=== PATIENT | female | born 1940 | race Caucasian/White ===

== ENCOUNTER → 2016-10-05 | Outpatient (CLI) | payer MEDICARE, BC ==
[~2016-10-05] MED LIST: ASPI81 PO; CALA240T PO; FLAG250T OR; GLIM4TAB PO; HYOS0.1251 SL; METF-324 PO; ONDA8; VICTOZA PO
[2016-10-05 14:34] LABS: ALKALINE PHOSPHATASE 102 U/L (45-117); ALT (GPT) 21 U/L (10-53); ANION GAP 8 MEQ/L (5-15); AST (GOT) 15 U/L (15-37); BICARBONATE 28.4 MEQ/L (21.0-32.0); BLOOD UREA NITROGEN 15 MG/DL (7-18); CHLORIDE 105 MEQ/L (98-107); FREE T4 1.26 NG/DL (0.76-1.46); GLOMERULAR FILTRATION RATE 42 ML/MIN (>89); GLUCOSE,FASTING 107 MG/DL (74-99); HDL CHOLESTEROL 42.3 MG/DL (40.0-60.0); LDL CHOLESTEROL 56 MG/DL (0-99); POTASSIUM 4.8 MEQ/L (3.5-5.1); SODIUM (NA) 141 MEQ/L (136-145); TOTAL BILIRUBIN ADULT 0.3 MG/DL (0.2-1.0)
[2016-10-05 19:15] LABS: HEMOGLOBIN A1b 2.4 %; HEMOGLOBIN Ao 82.9 %; HEMOGLOBIN LA1C 2.2 %
== END ==
LOC: PLAB 08:53
PROVIDERS: ATTEND Internal Medicine Endocrinology, Diabetes & Metabolism
DX: E11.9 Type 2 diabetes mellitus without complications (principal); I10 Essential (primary) hypertension; E78.5 Hyperlipidemia, unspecified; E03.9 Hypothyroidism, unspecified; E55.9 Vitamin D deficiency, unspecified
CPT/HCPCS: 36415; 80053; 80061; 82043; 82306; 83036; 84439; 84443

== ENCOUNTER → 2017-01-12 | Outpatient (CLI) | payer MEDICARE, BC ==
[2017-01-12 12:07] LABS: AUTOMATED NEUTROPHIL # 3.5 TH/MM3 (1.8-7.7); BASOPHIL % 0.7 % (0.0-2.0); EOSINOPHIL # 0.2 TH/MM3 (0-0.4); EOSINOPHIL % 3.4 % (0.0-4.0); HEMATOCRIT 41.9 % (35.0-46.0); HEMO FLAGS DIFF FINAL; LYMPH % 30.1 % (9.0-44.0); MEAN CELL VOLUME 88.2 FL (80.0-100.0); MEAN CORPUSCULAR HGB CONC 32.9 % (32.0-36.0); MONO % 12.7 % (0.0-8.0); NEUT % 53.1 % (16.0-70.0); PLATELET COUNT 160 TH/MM3 (150-450); RED BLOOD COUNT 4.75 MIL/MM3 (4.00-5.30); WHITE BLOOD COUNT 6.6 TH/MM3 (4.0-11.0)
[2017-01-12 12:22] LABS: MICRO ALBUMIN RANDOM URINE RAW 12.5 MG/L (0.0-30.0)
[2017-01-12 12:31] LABS: ALKALINE PHOSPHATASE 102 U/L (45-117); ALT (GPT) 28 U/L (10-53); ANION GAP 5 MEQ/L (5-15); AST (GOT) 22 U/L (15-37); BICARBONATE 27.8 MEQ/L (21.0-32.0); BLOOD UREA NITROGEN 18 MG/DL (7-18); CHLORIDE 109 MEQ/L (98-107); GLOMERULAR FILTRATION RATE 38 ML/MIN (>89); GLUCOSE,FASTING 82 MG/DL (74-99); HDL CHOLESTEROL 32.3 MG/DL (40.0-60.0); LDL CHOLESTEROL 52 MG/DL (0-99); POTASSIUM 4.8 MEQ/L (3.5-5.1); SODIUM (NA) 142 MEQ/L (136-145); TOTAL BILIRUBIN ADULT 0.4 MG/DL (0.2-1.0)
[2017-01-12 12:47] LABS: FREE T4 1.28 NG/DL (0.76-1.46)
[2017-01-12 13:42] LABS: HEMOGLOBIN A1a 1.3 %; HEMOGLOBIN A1b 2.2 %; HEMOGLOBIN Ao 83.1 %; HEMOGLOBIN P3 5.8 %
== END ==
LOC: PLAB 08:33
PROVIDERS: ATTEND Internal Medicine Endocrinology, Diabetes & Metabolism
DX: E11.9 Type 2 diabetes mellitus without complications (principal); I10 Essential (primary) hypertension; E78.5 Hyperlipidemia, unspecified; E55.9 Vitamin D deficiency, unspecified
CPT/HCPCS: 36415; 80053; 80061; 82043; 82306; 83036; 84439; 84443; 85025

== ENCOUNTER → 2017-04-20 | Outpatient (CLI) | payer MEDICARE, BC ==
[2017-04-20 10:01] LABS: ANION GAP 6 MEQ/L (5-15); BICARBONATE 28.3 MEQ/L (21.0-32.0); BLOOD UREA NITROGEN 16 MG/DL (7-18); CHLORIDE 108 MEQ/L (98-107); GLOMERULAR FILTRATION RATE 39 ML/MIN (>89); GLUCOSE,FASTING 87 MG/DL (74-99); POTASSIUM 5.1 MEQ/L (3.5-5.1); SODIUM (NA) 142 MEQ/L (136-145)
[2017-04-20 10:02] LABS: AST (GOT) 18 U/L (15-37)
[2017-04-20 10:12] LABS: ALKALINE PHOSPHATASE 97 U/L (45-117); ALT (GPT) 29 U/L (10-53); FREE T4 1.22 NG/DL (0.76-1.46); HDL CHOLESTEROL 33.6 MG/DL (40.0-60.0); LDL CHOLESTEROL 41 MG/DL (0-99); TOTAL BILIRUBIN ADULT 0.3 MG/DL (0.2-1.0)
[2017-04-20 12:19] LABS: HEMOGLOBIN A1a 1.4 %; HEMOGLOBIN A1b 2.3 %; HEMOGLOBIN Ao 82.8 %; HEMOGLOBIN LA1C 1.8 %; HEMOGLOBIN P3 4.4 %
== END ==
LOC: PLAB 08:09
PROVIDERS: ATTEND Internal Medicine Endocrinology, Diabetes & Metabolism
DX: E11.9 Type 2 diabetes mellitus without complications (principal); I10 Essential (primary) hypertension; E78.5 Hyperlipidemia, unspecified; E03.9 Hypothyroidism, unspecified
CPT/HCPCS: 36415; 80053; 80061; 82306; 83036; 84439; 84443

== ENCOUNTER → 2017-07-10 | Outpatient (CLI) | payer MEDICARE, BC ==
[2017-07-10 10:32] LABS: AUTOMATED NEUTROPHIL # 2.8 TH/MM3 (1.8-7.7); BASOPHIL % 0.8 % (0.0-2.0); EOSINOPHIL # 0.3 TH/MM3 (0-0.4); EOSINOPHIL % 4.2 % (0.0-4.0); HEMATOCRIT 41.9 % (35.0-46.0); HEMO FLAGS DIFF FINAL; LYMPH % 36.6 % (9.0-44.0); LYMPHOCYTE # 2.3 TH/MM3 (1.0-4.8); MEAN CELL VOLUME 89.1 FL (80.0-100.0); MEAN CORPUSCULAR HEMOGLOBIN 29.7 PG (27.0-34.0); MEAN CORPUSCULAR HGB CONC 33.3 % (32.0-36.0); MONO % 13.2 % (0.0-8.0); NEUT % 45.2 % (16.0-70.0); PLATELET COUNT 171 TH/MM3 (150-450); RED CELL DISTRIBUTION WIDTH 13.4 % (11.6-17.2); WHITE BLOOD COUNT 6.3 TH/MM3 (4.0-11.0)
[2017-07-10 10:44] LABS: ANION GAP 7 MEQ/L (5-15); AST (GOT) 22 U/L (15-37); BICARBONATE 25.7 MEQ/L (21.0-32.0); BLOOD UREA NITROGEN 20 MG/DL (7-18); CHLORIDE 108 MEQ/L (98-107); GLOMERULAR FILTRATION RATE 41 ML/MIN (>89); GLUCOSE,FASTING 93 MG/DL (74-99); POTASSIUM 4.7 MEQ/L (3.5-5.1); SODIUM (NA) 141 MEQ/L (136-145)
[2017-07-10 10:51] LABS: ALKALINE PHOSPHATASE 88 U/L (45-117); ALT (GPT) 24 U/L (10-53); HDL CHOLESTEROL 36.1 MG/DL (40.0-60.0); LDL CHOLESTEROL 38 MG/DL (0-99); TOTAL BILIRUBIN ADULT 0.4 MG/DL (0.2-1.0)
[2017-07-10 10:56] LABS: MICRO ALBUMIN RANDOM URINE RAW 14.9 MG/L (0.0-30.0)
[2017-07-10 14:29] LABS: HEMOGLOBIN A1a 1.5 %; HEMOGLOBIN A1b 2.4 %; HEMOGLOBIN Ao 82.6 %; HEMOGLOBIN LA1C 1.9 %; HEMOGLOBIN P3 4.4 %
== END ==
LOC: PLAB 08:09
PROVIDERS: ATTEND Internal Medicine Nephrology
DX: E78.5 Hyperlipidemia, unspecified (principal); N18.2 Chronic kidney disease, stage 2 (mild); D63.1 Anemia in chronic kidney disease; E55.9 Vitamin D deficiency, unspecified
CPT/HCPCS: 36415; 80053; 80061; 82043; 83036; 85025

== ENCOUNTER → 2017-07-30 | Outpatient (CLI) | payer MEDICARE, BC ==
[2017-07-30 13:38] LABS: ANION GAP 5 MEQ/L (5-15); AST (GOT) 21 U/L (15-37); BICARBONATE 27.2 MEQ/L (21.0-32.0); BLOOD UREA NITROGEN 15 MG/DL (7-18); CHLORIDE 110 MEQ/L (98-107); GLOMERULAR FILTRATION RATE 43 ML/MIN (>89); GLUCOSE,FASTING 106 MG/DL (74-99); POTASSIUM 4.7 MEQ/L (3.5-5.1); SODIUM (NA) 142 MEQ/L (136-145)
[2017-07-30 13:49] LABS: ALKALINE PHOSPHATASE 87 U/L (45-117); ALT (GPT) 26 U/L (10-53); FREE T4 1.31 NG/DL (0.76-1.46); HDL CHOLESTEROL 34.3 MG/DL (40.0-60.0); LDL CHOLESTEROL 43 MG/DL (0-99); TOTAL BILIRUBIN ADULT 0.5 MG/DL (0.2-1.0)
[2017-07-30 17:01] LABS: HEMOGLOBIN A1b 2.4 %; HEMOGLOBIN Ao 82.7 %; HEMOGLOBIN LA1C 2.1 %; HEMOGLOBIN P3 4.4 %
== END ==
LOC: PLAB 09:02
PROVIDERS: ATTEND Internal Medicine Endocrinology, Diabetes & Metabolism
DX: E11.9 Type 2 diabetes mellitus without complications (principal); I10 Essential (primary) hypertension; E78.5 Hyperlipidemia, unspecified; E03.9 Hypothyroidism, unspecified; E55.9 Vitamin D deficiency, unspecified
CPT/HCPCS: 36415; 80053; 80061; 82306; 83036; 84439; 84443

== ENCOUNTER → 2017-10-24 | Outpatient (CLI) | payer MEDICARE, BC ==
[2017-10-24 11:15] LABS: ALBUMIN 3.5 GM/DL (3.4-5.0); AST (GOT) 23 U/L (15-37); BICARBONATE 29.6 MEQ/L (21.0-32.0); BLOOD UREA NITROGEN 14 MG/DL (7-18); CALCIUM 9.6 MG/DL (8.5-10.1); CHLORIDE 108 MEQ/L (98-107); CHOLESTEROL 124 MG/DL (120-200); CREATININE 1.17 MG/DL (0.50-1.00); GLOMERULAR FILTRATION RATE 45 ML/MIN (>89); GLUCOSE,FASTING 91 MG/DL (74-99); SODIUM (NA) 143 MEQ/L (136-145); TRIGLYCERIDES 213 MG/DL (42-150)
[2017-10-24 11:24] LABS: ALKALINE PHOSPHATASE 105 U/L (45-117); ALT (GPT) 34 U/L (10-53); CHOLESTEROL/ HDL RATIO 3.55 RATIO; FREE T4 1.21 NG/DL (0.76-1.46); HDL CHOLESTEROL 34.9 MG/DL (40.0-60.0); LDL CHOLESTEROL 47 MG/DL (0-99); TOTAL BILIRUBIN ADULT 0.4 MG/DL (0.2-1.0); TOTAL PROTEIN 7.3 GM/DL (6.4-8.2)
[2017-10-24 15:58] LABS: HEMOGLOBIN A1C 7.4 % (4.3-6.0)
== END ==
LOC: PLAB 08:31
PROVIDERS: ATTEND Internal Medicine Endocrinology, Diabetes & Metabolism
DX: E11.9 Type 2 diabetes mellitus without complications (principal); I10 Essential (primary) hypertension; E78.5 Hyperlipidemia, unspecified; E03.9 Hypothyroidism, unspecified; E55.9 Vitamin D deficiency, unspecified
CPT/HCPCS: 36415; 80053; 80061; 82043; 82306; 83036; 84439; 84443

== ENCOUNTER → 2018-01-30 | Outpatient (CLI) | payer MEDICARE, BC ==
[2018-01-30 10:30] LABS: ALBUMIN 3.5 GM/DL (3.4-5.0); AST (GOT) 23 U/L (15-37); BICARBONATE 23.2 MEQ/L (21.0-32.0); BLOOD UREA NITROGEN 13 MG/DL (7-18); CALCIUM 9.7 MG/DL (8.5-10.1); CHLORIDE 110 MEQ/L (98-107); CREATININE 1.18 MG/DL (0.50-1.00); GLOMERULAR FILTRATION RATE 44 ML/MIN (>89); GLUCOSE,FASTING 95 MG/DL (74-99); SODIUM (NA) 143 MEQ/L (136-145)
[2018-01-30 10:31] LABS: ALT (GPT) 31 U/L (10-53); CHOLESTEROL 104 MG/DL (120-200); TRIGLYCERIDES 186 MG/DL (42-150)
[2018-01-30 10:39] LABS: ALKALINE PHOSPHATASE 100 U/L (45-117); CHOLESTEROL/ HDL RATIO 2.98 RATIO; FREE T4 1.15 NG/DL (0.76-1.46); HDL CHOLESTEROL 34.8 MG/DL (40.0-60.0); LDL CHOLESTEROL 32 MG/DL (0-99); TOTAL BILIRUBIN ADULT 0.4 MG/DL (0.2-1.0); TOTAL PROTEIN 7.1 GM/DL (6.4-8.2)
[2018-01-30 16:20] LABS: HEMOGLOBIN A1C 7.1 % (4.3-6.0)
== END ==
LOC: PLAB 08:34
PROVIDERS: ATTEND Internal Medicine Hematology
DX: E11.9 Type 2 diabetes mellitus without complications (principal); I10 Essential (primary) hypertension; E78.5 Hyperlipidemia, unspecified; E03.9 Hypothyroidism, unspecified; E55.9 Vitamin D deficiency, unspecified
CPT/HCPCS: 36415; 80053; 80061; 82306; 83036; 84439; 84443